=== PATIENT | female | born 1955 | race Caucasian/White ===

== ENCOUNTER 2021-02-10 20:54 | Emergency (ER) | payer BC ==
[2021-02-10] MEDS ORDERED: BAMLANIVIMAB (EUA) 700 MG, ETESEVIMAB (EUA) 1,400 MG in SODIUM CHLORIDE 0.9% 100 ML IVPB ONE (22:30)
[2021-02-10] MEDS ORDERED: SODIUM CHLORIDE 0.9% 50 ML IVPB ONE (22:30)
--- NOTE | 2021-02-10 23:09 | ED ---
URI HPI - General Chief Complaint: Upper Respiratory Infection Stated Complaint: Covid+, wants antibodies Time Seen by Provider: 02/10/21 21:45 Source: patient Mode of arrival: ambulatory Limitations: no limitations - History of Present Illness MD Complaint: fever, cough, nasal congestion -: days(s) Severity: mild Quality: dull Consistency: constant Improves With: nothing Worsens With: nothing Context: sick contacts Associated Symptoms: fever, chills, myalgias, nasal congestion, cough Treatments Prior to Arrival: Acetaminophen - Related Data Home Medications Medication Instructions Recorded Confirmed Aspirin EC [Ecotrin Low Dose] 81 mg PO DAILY 02/10/21 02/10/21 Biotin/Keratin 1 cap PO DAILY 02/10/21 02/10/21 Cholecalciferol [Vitamin D3 (125 125 mcg PO DAILY 02/10/21 02/10/21 Mcg = 5000 Iu)] DULoxetine HCL [Cymbalta] 60 mg PO DAILY 02/10/21 02/10/21 Furosemide [Lasix] 20 mg PO DAILY 02/10/21 02/10/21 Levothyroxine Sodium [Synthroid] 175 mcg PO DAILY 02/10/21 02/10/21 Loratadine [Claritin] 10 mg PO DAILY 02/10/21 02/10/21 Meloxicam [Mobic] 15 mg PO DAILY 02/10/21 02/10/21 Omeprazole 20 mg PO DAILY 02/10/21 02/10/21 Verapamil HCl [Verelan Pm] 100 mg PO DAILY 02/10/21 02/10/21 atenoloL [Tenormin] 25 mg PO DAILY 02/10/21 02/10/21 Allergies Allergy/AdvReac Type Severity Reaction Status Date / Time ampicillin Allergy Rash/Hives Verified 02/10/21 22:23 ciprofloxacin [From Cipro] Allergy Rash/Hives Verified 02/10/21 22:23 dicloxacillin Allergy Rash/Hives Verified 02/10/21 22:23 Sulfa (Sulfonamide Allergy Rash/Hives Verified 02/10/21 22:23 Antibiotics) Tetracyclines Allergy Rash/Hives Verified 02/10/21 22:23 Review of Systems ROS Statement: Those systems with pertinent positive or pertinent negative responses have been documented in the HPI. ROS Other: All systems not noted in ROS Statement are negative. Constitutional: Reports: fever, chills. Denies: weakness Eyes: Denies: vision change ENT: Reports: congestion Respiratory: Reports: cough. Denies: dyspnea Cardiovascular: Denies: chest pain, palpitations, syncope Gastrointestinal: Denies: abdominal pain, vomiting, diarrhea Genitourinary: Denies: dysuria Musculoskeletal: Denies: back pain Skin: Denies: rash Neurological: Denies: headache, weakness, numbness Past Medical History Past Medical History: Asthma, Thyroid Disorder Additional Past Medical History / Comment(s): rapid heart beat, depression History of Any Multi-Drug Resistant Organisms: C-DIFF Date of last positivie culture/infection: 2016 MDRO Source:: stool Past Surgical History: Appendectomy, Bladder Surgery, Section, Cholecystectomy, Hernia Repair, Hysterectomy, Orthopedic Surgery, Tonsillectomy Additional Past Surgical History / Comment(s): carpal tunnel, Past Psychological History: Depression Smoking Status: Never smoker Past Alcohol Use History: Occasional Past Drug Use History: None Reported General Exam Limitations: no limitations General appearance: alert, in no apparent distress Head exam: Present: atraumatic, normocephalic Eye exam: Present: normal appearance. Absent: scleral icterus, conjunctival injection ENT exam: Present: normal oropharynx Neck exam: Present: normal inspection, full ROM. Absent: tenderness, meningismus Respiratory exam: Present: normal lung sounds bilaterally. Absent: respiratory distress, wheezes, rales, rhonchi, stridor Cardiovascular Exam: Present: regular rate, normal rhythm, normal heart sounds. Absent: systolic murmur, diastolic murmur, rubs, gallop GI/Abdominal exam: Present: soft. Absent: distended, tenderness, guarding Extremities exam: Present: normal inspection, normal capillary refill. Absent: pedal edema, calf tenderness Neurological exam: Present: alert Skin exam: Present: warm, dry, intact, normal color. Absent: rash Course Vital Signs 02/10/21 02/10/21 21:43 22:05 Temperature 98 F Pulse Rate 79 Respiratory 22 26 H Rate Blood Pressure 181/98 O2 Sat by Pulse 97 Oximetry Disposition Clinical Impression: COVID-19 Disposition: HOME SELF-CARE Condition: Good Instructions (If sedation given, give patient instructions): Coronavirus Disease 2019 (COVID-19) Is patient prescribed a controlled substance at d/c from ED?: No Referrals: Johnny Colorado, [Primary Care Provider] - 1-2 days
[2021-02-11 00:02] VITALS: BP 150/86; PULSE 70; RESP 20; TEMP 98.1
== END 2021-02-11 00:55 | disposition home or self-care (01) ==
LOC: EC 20:54
DX: U07.1 COVID-19 (principal); J45.909 Unspecified asthma, uncomplicated; F32.A Depression, unspecified; Z79.82 Long term (current) use of aspirin; Z79.890 Hormone replacement therapy; Z79.1 Long term (current) use of non-steroidal anti-inflammatories (NSAID); Z79.899 Other long term (current) drug therapy
CPT/HCPCS: 99283; J3490